=== PATIENT | male | born 1945 | race African-American/Black ===

== ENCOUNTER 2023-12-09 11:10 | Outpatient (AMB) | payer MEDICARE, BC, SELFPAY ==
--- NOTE | 2023-12-09 11:12 | MHC.OFFVIS ---
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 He has a past medical history of hypertension, end-stage renal disease on dialysis Friday, hyperlipidemia, and CVA. He presents to the office today as a new patient for intermittent left-sided scrotal pain and dysuria. In discussion with the patient today reports symptoms have been present for many years however has moments where he feels symptoms are exacerbated. In review of patient's chart it appears patient with previous scrotal ultrasound showing no testicular torsion, with normal arterial and venous waveforms of both testicles, and there was diffusely heterogeneous echogenicity of the left testicle with questionable more focal lesion anteriorly in the mid testicle, as read by the radiologist. He reports having followed up with [facility] in the past however would like to establish urology care with in our practice. Patient's who is accompanied by the patient today reports when patient does experience left-sided scrotal/testicular pain heat is an alleviating factor. In assessment of the patient today left testicle is atrophic when compared to right testicle. Pain upon palpation of left epididymis. Discussed treatment options for epididymitis however patient does not feel this is necessary at this time as he has not been experiencing any pain as he had been prior. In discussion with the patient he reports typically he is anuric. He denies any bothersome urinary issues. He otherwise offers no other issues or concerns at this time. Review of Systems Const Reports no additional complaints Eyes Reports no additional complaints ENT Reports no additional complaints Card Reports as per HPI Resp Reports no additional complaints GI Reports no additional complaints Reports as per HPI Musc Reports as per HPI Neuro Reports as per HPI Psych Reports no additional complaints Endo Reports no additional complaints Harris/Lymph Reports no additional complaints Aller/Immun Reports no additional complaints Physical Exam Const General: cooperative, healthy appearing, comfortable, no acute distress, well developed, alert and awake Orientation/consciousness: patient oriented x3 Limitations: ambulation with cane HEENT Head: Yes normal to inspection, Yes normocephalic and Yes atraumatic Ears: hearing grossly normal bilaterally Eyes General: appearance normal, both eyes and all related structures Neck Neck: Yes normal visual inspection and Yes trachea midline Chest Chest palpation & inspection: normal inspection of the chest Resp Effort & Inspection: normal respiratory effort and able to speak in complete sentences Cardio Rate: regular rate GI Inspection: Yes normal to inspection General: Yes no CVA tenderness Back/Spine/Pelvis Back: no CVA tenderness Skin General skin exam: no rashes or lesions noted Neuro General: patient oriented x3 Extrem General: Yes normal to inspection Psych Appearance: grossly normal and well kempt Mental Status: mental status grossly normal Speech and movement: Normal speech and movement present and Clear speech present Affect: normal affect Attitude: cooperative Thought process: Normal thought process present Thought content: Normal thought content present Insight: Fair insight present (Psych) Judgement: Fair judgement present (Psych) Office Procedures Post Void Residual Post Residual Void Post Void Residual (PVR): 11 23980-Cupp Void Residual by ultrasound Assessment & Plan Assessment & Plan (1) Epididymal pain: Code(s): N50.819 - Testicular pain, unspecified Category: Medical (2) Dysuria: Code(s): R30.0 - Dysuria Category: Medical Plan Patient reports baseline anuric PVR 11ml's Patient denies any bothersome urinary issues. Discussed potential causes of epididymal pain patient is experiencing; discussed further treatment options to include short-term course of antibiotics with prednisone; however patient does not feel any bothersome issues at this time would like to continue with surveillance monitoring; he will call if symptoms arise Follow-up in 3 months; if not sooner with any issues, concerns, and or questions. Orders: Orders AMB Post Void Residual by ultrasound Today Z13.9 - Encounter for screening, unspecified Patient Instructions: The patient had an opportunity to ask questions regarding the treatment plan. All questions were answered. Physical exam, labs, and imaging were discussed and reviewed in detail. As well as risks, benefits, and discussion of treatment choices. No major barriers to understanding were identified. The patient expressed understanding and agreement with the above treatment plan. The patient was made aware they should contact our office by phone for worsening of their current condition, the appearance of new symptoms, or with any questions or concerns. Compliance is encouraged with any medications and follow up testing that is ordered. It is a privilege to be allowed the opportunity to participate in? your urological care.? Again, if you have any questions or concerns If you have any questions or concerns please do not hesitate to contact me. The office is [phone]. This note is constructed using voice recognition software. While every effort has been made to ensure accuracy cash applications clerk errors may have been included. Yours sincerely, MARK ANTHONY Sweeney Coding Level of Care Code New Pt Level 3 (70886) Diagnoses Epididymal pain N50.819 Dysuria R30.0 CPT Codes Post Residual Void - PVR CPT Code: 50323-Hyto Void Residual by ultrasound ([id number])
== END 2023-12-09 11:54 | disposition home or self-care (01) ==
PROVIDERS: Visit Provider Nurse Practitioner Family
DX: N50.819 Testicular pain, unspecified (principal); R30.0 Dysuria
CPT/HCPCS: 99203

== ENCOUNTER → 2023-12-09 11:10 | Outpatient (BNVA) | payer MEDICARE, BC, SELFPAY | PROVIDERS: Visit Provider Nurse Practitioner Family | DX: N50.812 Left testicular pain (principal); R30.0 Dysuria | CPT/HCPCS: 51798; 99202 ==

== ENCOUNTER 2024-04-29 07:58 | Outpatient (AMB) | payer BC, SELFPAY ==
--- NOTE | 2024-04-29 08:00 | A.OFFVIS_ITS ---
Intake Visit Reasons: 3m follow up Intake Note: Patient presents today for follow up on: epididymal pain Urology Medications: none Blood Thinner: none Obedience Trainer Required: No Accompanied by: Unknown Allergies No Known Allergies Allergy (Verified 04/29/24 11:25) Medication List - Last Reconciled 04/29/24 by CHUCKY Sweeney-BRANDON amlodipine 10 mg PO DAILY calcium acetate(phosphat bind) 2,001 mg PO TID gabapentin mg PO BID HPI Comments Details: Lisa is a very pleasant 78-year-old male patient who was accompanied by his at today's office visit. He has a past medical history of hypertension, end-stage renal disease on dialysis Friday, hyperlipidemia, and CVA. He presents to the office today for follow-up of his intermittent left-sided testicular pain and dysuria. In discussion with the patient today he continues to report left-sided testicular pain however feels dysuria has subsided. He discusses having had some sort of injection/shot for pain relief with [facility] in the past that he felt was somewhat helpful. On exam today bilateral testicles atrophied and pain upon palpation of left testicle and left epididymis. We discussed obtaining medical release form to obtain previous urology records for continuity of care. He discusses episodes of dysuria he had been experiencing have subsided as he is anuric. Patient with previous scrotal ultrasound that noted no testicular torsion, with normal arterial and venous waveforms of both testicles, and there was diffusely heterogeneous echogenicity of the left testicle with questionable more focal lesion anteriorly in the mid testicle, as read by the radiologist. He reports having followed up with [facility] in the past however would like to establish urology care with in our practice. Patient's who is accompanied by the patient today reports when patient does experience left-sided scrotal/testicular pain heat is an alleviating factor. He denies any bothersome urinary issues. He otherwise offers no other issues or concerns at this time. Review of Systems Const Reports no additional complaints Eyes Reports no additional complaints ENT Reports no additional complaints Card Reports as per [facility] Resp Reports no additional complaints GI Reports no additional complaints Reports as per [facility] Musc Reports as per [facility] Neuro Reports as per HPI Psych Reports no additional complaints Endo Reports no additional complaints Harris/Lymph Reports no additional complaints Aller/Immun Reports no additional complaints Physical Exam Const General: cooperative, healthy appearing, comfortable, no acute distress, well developed, alert and awake Orientation/consciousness: patient oriented x3 Limitations: ambulation with cane HEENT Head: Yes normal to inspection, Yes normocephalic and Yes atraumatic Ears: hearing grossly normal bilaterally Eyes General: appearance normal, both eyes and all related structures Neck Neck: Yes normal visual inspection and Yes trachea midline Chest Chest palpation & inspection: normal inspection of the chest Resp Effort & Inspection: normal respiratory effort and able to speak in complete sentences Cardio Rate: regular rate GI Inspection: Yes normal to inspection General: Yes no CVA tenderness Back/Spine/Pelvis Back: no CVA tenderness Skin General skin exam: no rashes or lesions noted Neuro General: patient oriented x3 Extrem General: Yes normal to inspection Psych Appearance: grossly normal and well kempt Mental Status: mental status grossly normal Speech and movement: Normal speech and movement present and Clear speech present Affect: normal affect Attitude: cooperative Thought process: Normal thought process present Thought content: Normal thought content present Insight: Fair insight present (Psych) Judgement: Fair judgement present (Psych) Assessment & Plan Assessment & Plan (1) Epididymal pain: Code(s): N50.819 - Testicular pain, unspecified Category: Medical (2) Dysuria: Code(s): R30.0 - Dysuria Category: Medical Plan Will attempt to obtain previous urology records for continuity of care. We discussed further treatment options of testicular pain. Continue with heat as needed as patient reports this is somewhat helpful. He otherwise denies any bothersome urinary issues. Follow-up with Dr. Michael for further assessment evaluation; or sooner with any issues, concerns, and or questions. Patient Instructions: The patient had an opportunity to ask questions regarding the treatment plan. All questions were answered. Physical exam, labs, and imaging were discussed and reviewed in detail. As well as risks, benefits, and discussion of treatment choices. No major barriers to understanding were identified. The patient expressed understanding and agreement with the above treatment plan. The patient was made aware they should contact our office by phone for worsening of their current condition, the appearance of new symptoms, or with any questions or concerns. Compliance is encouraged with any medications and follow up testing that is ordered. It is a privilege to be allowed the opportunity to participate in? your urological care.? Again, if you have any questions or c oncerns If you have any questions or concerns please do not hesitate to contact me. The office is [phone]. This note is constructed using voice recognition software. While every effort has been made to ensure accuracy credentialing coordinator errors may have been included. Yours sincerely, MARK ANTHONY Sweeney Coding Level of Care Code Est Pt Level 3 (15191) Complex EM visit Add On G2211 Diagnoses Epididymal pain N50.819 Dysuria R30.0
== END 2024-04-29 08:37 | disposition home or self-care (01) ==
LOC: HO.HUSH 07:58
PROVIDERS: Visit Provider Nurse Practitioner Family
DX: N50.819 Testicular pain, unspecified (principal); R30.0 Dysuria
CPT/HCPCS: 99213

== ENCOUNTER 2024-10-19 09:05 | Outpatient (AMB) | payer BC, SELFPAY ==
--- NOTE | 2024-10-19 09:08 | MHC.OFFVIS ---
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 He is seen for the following urologic conditions - testicular pain - dysuria - prostate cancer 12 month follow-up check PSA Testicle pain currently under control If it were to recur would suggest left orchiectomy Testicular pain Prior evaluation with bilateral atrophied testicles and pain on palpation of left testicle and epididymis at [facility] Dialysis dependent and uric Scrotal ultrasound normal waveform question of focal testicular heterogeneous echogenicity Prostate cancer Treatment with brachytherapy indeterminate timeframe in [place] PSA 12/04 0.1 Dialysis dependent - dialyze Friday, Friday, Friday for many years Review of Systems Const Denies chills and Denies fever(s) Card Reports no additional complaints and Denies syncope Resp Denies cough GI Denies abdominal pain and Denies heartburn Reports as per HPI and Denies change in libido Neuro Denies syncope Psych Denies change in libido Endo Denies change in libido Physical Exam Const General: cooperative, healthy appearing, comfortable and no acute distress Orientation/consciousness: patient oriented x3 HEENT Face and sinus: Yes normal facial exam Mouth: moist mucous membranes Neck Neck: Yes normal visual inspection, Yes full ROM and Yes trachea midline Chest Chest palpation & inspection: normal inspection of the chest Resp Effort & Inspection: normal respiratory effort, able to speak in complete sentences and no respiratory distress GI Inspection: Yes normal to inspection Back/Spine/Pelvis Cervical Spine: normal cervical lordosis Thoracic/Lumbar Spine: thoracic and lumbar spine normal to inspection Skin General skin exam: no rashes or lesions noted Neuro General: patient oriented x3, gait normal, tone normal and moves all extremities Extrem General: Yes normal to inspection and Yes capillary refill normal Assessment & Plan Assessment & Plan (1) Prostate cancer: Comment: Brachytherapy Code(s): C61 - Malignant neoplasm of prostate Category: Medical (2) Epididymal pain: Code(s): N50.819 - Testicular pain, unspecified Category: Medical Plan Twelve month follow-up PSA Orders: Orders Prostate Specific Antigen 12 Months C61 - Malignant neoplasm of prostate Patient Instructions: This note is constructed using voice recognition software. While every effort has been made to ensure accuracy gauge and weigh machine adjuster errors may have been included. Imaging studies, laboratory and physical exam results were discussed and reviewed in detail. No major barriers to patient understanding were identified. An opportunity to ask questions regarding the treatment plan was provided. All questions were answered. The patient expressed understanding and agreement with the above treatment plan. The patient is aware they should contact our office by phone for worsening of their current condition or the appearance of new urologic symptoms. Compliance is encouraged with any medications and followup testing that is ordered. It is a privilege to participate in the urologic care of your patient. If you have any questions or concerns regarding treatment for the above conditions, or other urologic issues, please do not hesitate to contact me. The office telephone contact is [phone]. Sincerely, Dr Julio Michael MD, [facility] - Urology Compassionate Specialist Care for the Genitourinary System Coding Level of Care Code Est Pt Level 3 (91159) Diagnoses Prostate cancer C61 Epididymal pain N50.819
--- OUTSIDE RECORDS SUMMARY | 2024-10-19 09:52 | XMS_ITS | Encounter Summary ---
Author Organization [facility] Address [address] [phone] Phone Care Team Providers Care Archaeology Professor Name Role Phone Pam Brooks MD Primary Care Provider + Encounter Details Date Type Department Care Team (Late st Contact Info) Description 10/13/2024 Orders Only [facility] [address] [phone] Bashir Michael MD [address] [phone] Social History Tobacco Use Types Packs/Day Years Used Date Smoking Tobacco: Never Smokeless Tobacco: Never Alcohol Use Standard Drinks/Week Comments Not Currently 1 (1 standard drink = 0.6 oz pure alcohol) Alcoholic Drinks/day: Occasional social drink AUDIT-C Answer Date Recorded Q1: How often do you have a drink containing alc ohol? Never 08/30/2019 Average Number of Drinks Not on file 020 Frequency of Binge Drinking Not on file 08/17 Sex and Gender Information Value Date Recorded Sex Assigned at Not on file Legal Sex Male 4:31 PM EST Gender Identity Not on file Sexual Orientation Not on file documented as of this encounter Plan of Treatment Upcoming Encounters Date Type Department Care Team (Late st Contact Info) Description 11/11/2024 11:00 AM EDT Procedure visit [facility] [address] [place] [id number] documented as of this encounter Procedures Procedure Name Priority Date/Time Associated Diagnosis Comments HEMATOLOGY Routine 10/13/2024 CHEMISTRY Routine 10/13/2024 documented in this encounter Results * (ABNORMAL) HEMATOLOGY (10/13/2024) Hemoglobin 12.6(L) 14.0 - 18.0 g/dL [facility] Hemoglobin x 3 37.8(L) 42.0 - 54.0 % [facility] 10/13/2024 10/14/2024 9:0 3 AM EDT Narrative [facility] - 10/14/2024 Unless otherwise specified, test(s) performed at: [facility], [address] [place] [id number] PULP BLEACHER: Eliseo Peck M.D. For any questions, please call customer service at FREQUENCY:OTHER Resulting Agency Comment Specimen source: Blood Jason Baron MD LAB BLOOD ORDERABLES Final Resu lt [facility] See order comments or contact performing lab Unknown, [place] * [facility] (10/13/2024) Pathologist [facility] Bicarbonate (CO2) 24 22 - 29 mEq/L [facility] 10/13/2024 10/14/2024 8:0 6 AM EDT Narrative [facility] - 10/14/2024 Unless otherwise specified, test(s) performed at: [facility], [address] [place] [id number] PULP BLEACHER: Eliseo Peck M.D. For any questions, please call customer service at FREQUENCY:OTHER Resulting Agency Comment Specimen source: Serum Bashir Michael MD LAB BLOOD ORDERABLES Final Result Performing Organization Address City/[facility]/ZIP Co de Phone Number [facility] See order comments or contact performing lab Unknown, [place] documented in this encounter Visit Diagnoses Not on filedocumented in this encounter Care Teams Archaeology Professor Relationship Specialty Start Date End Date Pam Brooks MD [facility] [place] [address] PCP - General 03/23/19 documented as of this encounter
== END 2024-10-19 09:56 | disposition home or self-care (01) ==
LOC: HO.HUSH 09:06
PROVIDERS: Visit Provider Urology
DX: C61 Malignant neoplasm of prostate (principal); N50.819 Testicular pain, unspecified
CPT/HCPCS: 99213

== ENCOUNTER → 2024-10-19 09:05 | Outpatient (BNVA) | payer BC, SELFPAY | PROVIDERS: Visit Provider Urology | DX: Z13.89 Encounter for screening for other disorder (principal) ==